=== PATIENT | female | born 1950 | race Caucasian/White ===

== ENCOUNTER 2017-05-26 06:30 | Day surgery (SDC) | payer BC ==
[2017-05-25 15:58] VITALS: BMI 28.3
--- NOTE | 2017-05-26 05:53 | HP ---
SHORT STAY HISTORY AND PHYSICAL DATE OF ADMISSION: 05/26/2017 HISTORY OF PRESENT ILLNESS: This is a 66-year-old female who comes in for an EGD because of chronic and persistent acid reflux. The patient has history of acid reflux more than 20 years. The patient had taken various medicines including pantoprazole, Nexium, Prilosec, etc. The patient continued to have reflux symtpoms in spite of taking pantoprazole twice a day. The patient's symptoms persisted . The patient complains of heartburn. She also complains of regurgitation of sour tasting fluid on and off. There is no history of dysphagia. Although, she has had acid reflux for more than 20 years, she never had an EGD. The patient comes for an EGD because of longstanding acid reflux. ALLERGIES: None. SOCIAL HISTORY: The patient does not smoke, drinks alcohol socially. MEDICAL ILLNESSES: 1. Chronic acid reflux. 2. Diabetes. 3. Hypertension. 4. Hyperlipidemia. 5. Colon polyp. 6. Osteoporosis. 7. Status post cholecystectomy. 8. Status post hysterectomy. 9. Urinary incontinence. PHYSICAL EXAMINATION: VITAL SIGNS: Pulse is 70, blood pressure 130/70. HEENT: Conjunctivae clear. No adenitis or thyromegaly noted. CARDIOVASCULAR: First and second heart sounds normal. LUNGS: Clear to auscultation. ABDOMEN: Soft to palpate. No organomegaly. No tenderness. No masses. ADMITTING DIAGNOSIS: Chronic acid reflux, longstanding. PLAN: EGD. MTDD
[2017-05-26] MEDS ORDERED: Fentanyl 100 MCG/2 ML VIAL ONE (08:12)
--- NOTE | 2017-05-26 13:14 | OP ---
DATE OF PROCEDURE: 05/26/2017 PROCEDURE PERFORMED: Esophagogastroduodenoscopy with biopsy. PREOPERATIVE DIAGNOSIS: A 66-year-old female with 20-year history of acid reflux. The pat ient had tried various PPIs. Most recently, she has been placed on Dexilant and Pepcid at the [facility]. The patient is undergoing esophagogastroduodenoscopy. POSTOPERATIVE DIAGNOSES: 1. Normal esophageal mucosa without any evidence of esophagitis or any Mayes's mucosa. 2. Mild mucosal hyperemia, diffuse, most likely from bile reflux and large amount of pantera in the st omach. 3. Pyloric channel showed mild mucosal edema and erythema. In the duodenal bulb and descending duod enum, no pathology seen. PROCEDURE IN DETAIL: The patient was placed on her left lateral position and was given sedation by A nesthesia Department. A bite block was placed. A [employer]ax video gastroscope under direct vision was p assed down the oropharynx, past the GE junction, into the stomach and subsequently into the descendin g duodenum. Although the patient has had longstanding acid reflux and underwent an endoscopy, no eso phagitis seen. The mucosa appeared normal. There was no Mayes's mucosa seen. Random biopsies wer e obtained at about 5 cm from the GE junction. Retroflexion failed to show any lesions in the fundus or cardia. A large amount of bile seen. This was suctioned out. The gastric mucosa was mildly hyp eremic throughout. Over the gastric antrum and pyloric channel, there was some mild mucosal edema st ill noted. Biopsies were obtained from the area and also gastric antrum, body, and incisura. In the duodenal bulb and descending duodenum, no pathology seen. The stomach was decompressed and the scop e was removed. DISCHARGE PLANNING: This is a 66-year-old female with a longstanding acid reflux who came in for an EGD. The EGD showed gastritis and a normal esophageal mucosa. DISCHARGE RECOMMENDATIONS: Continue Dexilant 60 mg p.o. once a day in the morning and Pepcid 20 mg p .o. at bedtime. The patient was advised to call me if she develops any abdominal pain and hematemesi s or melena. In the absence of any of the above symptoms, she will come back to me next week.
[2017-05-26] MEDS ORDERED: Propofol 200 MG/20 ML VIAL ONE (16:27)
[2017-05-26] MEDS ORDERED: Lidocaine 1% PF 5 ML VIAL ONE (16:27)
== END 2017-05-26 09:05 | disposition home or self-care (01) ==
LOC: SDC 06:30
PROVIDERS: ATTEND Internal Medicine Gastroenterology
PROC: 0DB58ZX Excision of Esophagus, Via Natural or Artificial Opening Endoscopic, Diagnostic (ICD-10-PCS; principal; 2017-05-26)
PROC: 0DB68ZX Excision of Stomach, Via Natural or Artificial Opening Endoscopic, Diagnostic (ICD-10-PCS; principal; 2017-05-26)
DX: K21.9 Gastro-esophageal reflux disease without esophagitis (principal); K29.70 Gastritis, unspecified, without bleeding; E11.9 Type 2 diabetes mellitus without complications; I10 Essential (primary) hypertension; E78.5 Hyperlipidemia, unspecified; M81.0 Age-related osteoporosis without current pathological fracture; R32 Unspecified urinary incontinence; Z86.010 Personal history of colon polyps; Z90.710 Acquired absence of both cervix and uterus; Z90.49 Acquired absence of other specified parts of digestive tract; Z79.84 Long term (current) use of oral hypoglycemic drugs; Z79.83 Long term (current) use of bisphosphonates; Z79.82 Long term (current) use of aspirin; Z79.899 Other long term (current) drug therapy
CPT/HCPCS: 88305; 88312; 88313; J2001; J2704; J3010